=== PATIENT | male | born 1945 | race Caucasian/White ===

== ENCOUNTER → 2016-05-20 | Outpatient (CLI) | payer MEDICARE, BC | END | disposition home or self-care (01) | LOC: GMAL 12:12 | PROVIDERS: ATTEND Family Medicine | DX: D51.3 Other dietary vitamin B12 deficiency anemia (principal) ==

== ENCOUNTER → 2016-11-24 | Outpatient (CLI) | payer MEDICARE, BC | END | disposition home or self-care (01) | LOC: GMAL 11:22 | PROVIDERS: ATTEND Family Medicine | DX: Z12.5 Encounter for screening for malignant neoplasm of prostate (principal); E55.9 Vitamin D deficiency, unspecified | CPT/HCPCS: 82306; G0103 ==

== ENCOUNTER → 2016-12-04 | Outpatient (CLI) | payer MEDICARE, BC ==
--- NOTE | 2016-12-05 10:28 | US ---
EXAM DESCRIPTION: Extremity,Lower Keegan Arteries CLINICAL HISTORY: 71 years Male, Other specified peripheral vascular diseases COMPARISON: None. TECHNIQUE: 2-D grayscale and color arterial duplex Doppler evaluation of the bilateral lower extremities is performed. FINDINGS: There is normal triphasic waveform flow from proximal to distal in the right lower extremity with no elevated velocities. There is normal triphasic waveform flow from the left common femoral artery to the popliteal artery. Triphasic flow in the peroneal and posterior tibialis arteries is seen with monophasic flow in the dorsalis pedis. Mild scattered ossified plaque of the arterial vasculature are seen. IMPRESSION: Mild atherosclerotic disease of the bilateral lower extremity arterial vasculature. No ultrasound evidence of flow-limiting stenosis in the major proximal to mid vessels of the bilateral lower extremities and distal vessel of the right lower extremity. Monophasic flow in the dorsalis pedis suggests moderate vascular disease in the more proximal anterior tibialis artery. Electronically signed by: Rashaad Hill MD 12/05/2016 10:26 AM CDT
== END | disposition home or self-care (01) ==
LOC: US 14:22
PROVIDERS: ATTEND Family Medicine
DX: I73.89 Other specified peripheral vascular diseases (principal)

== ENCOUNTER → 2017-05-20 | Outpatient (CLI) | payer MEDICARE, OTHER ==
--- NOTE | 2017-05-21 11:31 | MRI ---
EXAM DESCRIPTION: Lumbar Spine w/o Contrast MRI. CLINICAL HISTORY: LOW BACK PAIN COMPARISON: MRI lumbar spine 12/25/2008. TECHNIQUE: Multiplanar, multiple standard sequences, non contrast MRI, lumbar spine. FINDINGS: L5-S1: Disc desiccation and minimal disc space loss. Right side Modic type II endplate reactive changes, and Modic type III on the left. Minimal anterior bulging. Trace retrolisthesis. Mild foraminal narrowing right and moderate narrowing on the left. Mild to moderate canal narrowing. Posterior elements unremarkable. Well-circumscribed bright T1 and T2 signal in the superior left lateral L5 vertebral body, partially obscured by Modic type II endplate reactive changes on the left at L4-5. Smaller lesion with similar signal in the S1 segment. L4-5: Disc desiccation and moderate disc space loss posterior more than anterior. Bilateral Modic type II endplate reactive changes more posterior and to the right of midline. Posterior midline disc protrusion 6 mm impressing on the thecal sac. Bilateral mild facet arthrosis and posterior flavum ligament hypertrophy impressing on the lateral sac. AP canal diameter 6 cm. Bilateral disc bulge encroaching on the subarticular recesses, which are almost stenotic. Bilateral borderline foraminal stenosis. Schmorl's nodes in the endplates. L3-4: Minimal disc space loss. Anterior bulging and endplate spurs. Type II endplate reactive changes anterior and posterior. Posterior midline bulge 4 mm. Posterior flavum ligament hypertrophy. AP canal diameter 9 mm. Disc bulge encroaching on the bilateral subarticular recesses. Bilateral moderate foraminal narrowing. L2-3: Anterior disc bulge and endplate ridging with anterior Modic type II endplate reactive changes. Minimal posterior broad-based disc bulge. Posterior bilateral flavum ligament hypertrophy. Moderate canal narrowing. Disc bulge laterally with mild left foraminal narrowing and moderate right foraminal narrowing. Central L3 vertebral body well-circumscribed bright T1 and T2 signal stable since the prior study. L1-2: Disc desiccation and disc space maintained. Anterior Modic type II endplate reactive changes and minimal disc bulge. Progressed since the prior study. Minimal posterior bulge. Minimal flavum ligament hypertrophy. Moderate canal narrowing. Bilateral foramina are patent. Posterior L1 bright T1 and T2 weighted signal stable. T12-L1 disc signal unremarkable and disc space preserved. Canal and foramina are patent. Posterior elements unremarkable. Conus terminates at this level. Bright T1 and T2 signal in the posterior T12 vertebral body stable. No significant scoliosis. Paravertebral soft tissues unremarkable.. Heterogeneous marrow signal in the included sacrum, vertebral bodies and the posterior elements, and overall decreased fatty marrow, stable since the prior study. Vertebral bodies are not compressed at any level. IMPRESSION: 1. Multifactorial moderate to severe central canal stenosis at L4-5. Also possible cirrhosis bilateral subarticular recesses. Correlate for bilateral L5 radiculopathy. Bilateral borderline foraminal stenosis. Correlate for bilateral L4 radiculopathy. This has progressed since the prior study. Stable hemangioma abutting the endplate at L5. 2. Bilateral moderate to severe spondylosis at L5-S1. Progressive with progressive narrowing of the canal and left foramen. Vertebral body hemangioma and marrow reconversion in the sacrum. 3. Posterior moderate spondylosis and trace retrolisthesis at L3-4 with disc desiccation. Mild central canal stenosis. Also narrowing bilateral subarticular recesses. Correlate for bilateral L4 radiculopathy. Progressed since the prior study. Stable hemangioma L3 vertebral body. 4. Hemangiomas in the L3, L1, and T12 vertebral bodies are stable since the prior study along with marrow reconversion.. Electronically signed by: Dl Stewart MD 05/21/2017 11:30 AM CDT
== END ==
LOC: MRI 13:34
PROVIDERS: ATTEND Family Medicine
DX: M48.061 Spinal stenosis, lumbar region without neurogenic claudication (principal); M47.897 Other spondylosis, lumbosacral region; D18.09 Hemangioma of other sites

== ENCOUNTER → 2017-07-30 | Outpatient (CLI) | payer MEDICARE, OTHER | LOC: LAB.O 14:23 | PROVIDERS: ATTEND Psychiatry & Neurology Neurology | DX: M45.0 Ankylosing spondylitis of multiple sites in spine (principal); K50.90 Crohn's disease, unspecified, without complications; M32.10 Systemic lupus erythematosus, organ or system involvement unspecified; E11.9 Type 2 diabetes mellitus without complications; R53.83 Other fatigue; E55.9 Vitamin D deficiency, unspecified; M71.50 Other bursitis, not elsewhere classified, unspecified site; I67.9 Cerebrovascular disease, unspecified; M15.0 Primary generalized (osteo)arthritis; R50.9 Fever, unspecified; M79.A9 Nontraumatic compartment syndrome of other sites; M10.9 Gout, unspecified; E03.9 Hypothyroidism, unspecified; G60.3 Idiopathic progressive neuropathy; M35.1 Other overlap syndromes; G35 Multiple sclerosis; M79.1 Myalgia; G70.00 Myasthenia gravis without (acute) exacerbation; G04.89 Other myelitis; M81.8 Other osteoporosis without current pathological fracture; M35.3 Polymyalgia rheumatica; M33.22 Polymyositis with myopathy; B02.29 Other postherpetic nervous system involvement; M54.16 Radiculopathy, lumbar region; I73.00 Raynaud's syndrome without gangrene; G25.89 Other specified extrapyramidal and movement disorders; M35.00 Sjogren syndrome, unspecified ==

== ENCOUNTER → 2017-11-18 | Outpatient (CLI) | payer MEDICARE, OTHER | LOC: GMAL 12:15 | PROVIDERS: ATTEND Family Medicine | DX: D51.3 Other dietary vitamin B12 deficiency anemia (principal); R53.83 Other fatigue ==

== ENCOUNTER → 2017-11-26 | Outpatient (CLI) | payer MEDICARE, OTHER ==
--- NOTE | 2017-11-27 09:29 | CT ---
EXAM DESCRIPTION: Abdomen/Pelvis w/wo Contrast: Computed Tomography. CLINICAL HISTORY: ABDOMINAL PAIN. Hernia, distention, and bloating. COMPARISON: CT scan abdomen and pelvis 09/26/2013. TECHNIQUE: Spiral-axial scans at 5 x 5 mm intervals through the abdomen and pelvis before and after Optiray 320 nonionic IV contrast. Water-soluble oral contrast was given prior to without IV contrast sequence. Coronal and sagittal 2 mm reconstructions. 5 mm Delayed helical-axial scans, liver through the pubic symphysis. No adverse reactions. Total Exam DLP 4647.03 mGy - cm. This exam was performed according to our departmental CT dose-optimization program which includes automated exposure control, adjustment of the mA and/or kV according to patient size and/or use of iterative reconstruction technique; to reduce radiation dose to as low as reasonably achievable (ALARA). FINDINGS: Lung bases and pleura: Small nodule in the base of the right middle lobe approximately 3 mm mean diameter. Minimal pleural thickening. Liver, Stomach, Spleen, Adrenal Glands: Minimally plump adrenal glands bilaterally with fatty density below -30 HU. Small sliding hiatal hernia. Fatty lipoma in the left bro of the diaphragm. Minimal heterogeneous fatty density in the liver. Other solid organs are negative. Pancreas, Gallbladder, Ducts: Gallbladder visualized. Duct and pancreas negative. Kidneys and Ureters: Significant hydronephrosis left kidney but minimal perinephric edema. Marked hydroureter 1.7 cm with abrupt tapering to normal caliber at the L4-5 disc space level. 10 x 4.5 mm radiodense stone in the posterior aspect of the dilated ureter just above this transition. Long axis of the stone is parallel to the posterior ureteral wall Very distal left ureter and UVJ and base of the bladder partially obscured by beam hardening artifact from left total hip arthroplasty. On the delayed image, there is contrast pooling in the posterior aspect of the minor calyces but no significant amount of contrast enters the renal pelvis or left ureter Thinning of the left renal cortex with at least 4 cortical cysts measuring 2 to 3 mm in diameter. No radiodense stones. Cortical cysts also seen on the right kidney smaller with no hydronephrosis and no hydroureter. No radiodense stones in the right kidney. Mesentery: No significant fatty stranding or fascial thickening especially around the dilated left kidney and ureter. No free air or free fluid. Aorta: Minimal atherosclerotic calcification with no dilation. Small Bowel: Normal caliber and contains oral contrast. Terminal Ileum/Cecum: Unremarkable. Appendix is visualized. Normal fatty density surrounding these organs. Colon: Diffuse fecal material from the cecum to the rectum. Minimal redundancy of the sigmoid colon with no complications. Pelvic Organs: Prostate gland abutting the urinary bladder with central calcification. The bladder is contracted. Seminal vesicles are not well seen. Artifact from left total hip arthroplasty. Spine and Bony Pelvis: Spondylosis L4-5 and L5-S1 also in some of the included thoracic disc spaces. Xiphoid process inferiorly angled anteriorly 9 degrees under the skin. Minimal arthrosis in the right hip joint. Abdominal Wall/Back Soft Tissues: Small fatty left inguinal hernia and diastases of the umbilicus not containing bowel. Bilateral fatty adrenal glands are unremarkable Ia not containing bowel. Minimal diastases of the umbilicus but not containing bowel. IMPRESSION: 1. Moderate to severe hydronephrosis which appears to be chronic with minimal perirenal fatty stranding similar to contralateral normal right kidney pararenal fat. Significant dilation of the left renal pelvis with left hydroureter which abruptly transitions to normal caliber at the L4-5 disc level. Approximately 10 mm stone just above this transition. No mass affect or fatty stranding at this transition point. No radiodense stones in either kidney. Bilateral renal cortical cysts larger on the left. 2. Minimal fatty infiltration of the liver. Spondylosis L4-5 and L5-S1. Small fatty left inguinal hernia not containing bowel. Prostate gland not enlarged with central calcification. Electronically signed by: Dl Stewart MD 11/27/2017 9:28 AM CDT
== END ==
LOC: RAD 12:01
PROVIDERS: ATTEND Family Medicine
DX: R10.84 Generalized abdominal pain (principal); N13.2 Hydronephrosis with renal and ureteral calculous obstruction; K76.0 Fatty (change of) liver, not elsewhere classified; K40.90 Unilateral inguinal hernia, without obstruction or gangrene, not specified as recurrent; N28.1 Cyst of kidney, acquired; R35.0 Frequency of micturition; Z12.5 Encounter for screening for malignant neoplasm of prostate
CPT/HCPCS: 74178; 87086; G0103

== ENCOUNTER → 2018-02-25 | Outpatient (CLI) | payer MEDICARE, OTHER | LOC: GMAL 10:33 | PROVIDERS: ATTEND Family Medicine | DX: D51.3 Other dietary vitamin B12 deficiency anemia (principal); E03.9 Hypothyroidism, unspecified ==

== ENCOUNTER → 2018-10-01 | Outpatient (CLI) | payer MEDICARE, OTHER ==
--- NOTE | 2018-10-01 15:05 | RAD ---
EXAM DESCRIPTION: Chest,2 Views CLINICAL HISTORY: COUGH COMPARISON: Previous study July 14, 2018 TECHNIQUE: PA/lateral FINDINGS: There is no acute appearing cardiac or pulmonary abnormality. Heart size is prominent with increased pulmonary vascularity. No pleural effusion or pneumothorax. Lungs are clear with no consolidating infiltrate. Lateral view shows intact sternum and T-spine. IMPRESSION: Large heart with increased vascularity. Electronically signed by: Isidro Johnson MD 10/01/2018 3:04 PM CDT
== END ==
LOC: LAB.O 14:33
PROVIDERS: ATTEND Nurse Practitioner Family
DX: R05 Cough (principal)

== ENCOUNTER → 2018-11-22 | Outpatient (CLI) | payer MEDICARE, OTHER ==
--- NOTE | 2018-11-22 12:36 | RAD ---
EXAM DESCRIPTION: Foot,Left 3 Views CLINICAL HISTORY: 73 years Male, PAIN IN LEFT FOOT COMPARISON: 11/19/2018 Findings: Redemonstrated first, second and third proximal phalanx fractures with similar alignment. No new fracture identified. Lisfranc alignment is maintained. Improved soft tissue swelling. IMPRESSION: Similar first through third proximal phalanx fractures. Electronically signed by: Hemanth Carlisle MD 11/22/2018 12:34 PM CDT
== END ==
LOC: RAD 09:45
PROVIDERS: ATTEND Orthopaedic Surgery
DX: S92.412A Displaced fracture of proximal phalanx of left great toe, initial encounter for closed fracture (principal); S92.512A Displaced fracture of proximal phalanx of left lesser toe(s), initial encounter for closed fracture

== ENCOUNTER → 2018-12-06 | Outpatient (CLI) | payer MEDICARE, OTHER ==
--- NOTE | 2018-12-06 11:06 | RAD ---
EXAM DESCRIPTION: Foot,Left 3 Views CLINICAL HISTORY: CLOSED FX OF METATARSAL BONE COMPARISON: Radiographs the left foot dated 11/22/2018. TECHNIQUE: AP, LATERAL, AND OBLIQUE FINDINGS: The visualized bones appear well mineralized. Comminuted fracture of the proximal phalanges of the first, second and third toes are again noted with no interval healing. There is associated soft tissue swelling. IMPRESSION: Comminuted fracture of the proximal phalanges of the first, second and third toes are again noted with no interval healing. Electronically signed by: Miriam Zhu MD 12/06/2018 11:04 AM CDT
== END ==
LOC: RAD 09:32
PROVIDERS: ATTEND Orthopaedic Surgery
DX: S92.415D Nondisplaced fracture of proximal phalanx of left great toe, subsequent encounter for fracture with routine healing (principal); S92.515D Nondisplaced fracture of proximal phalanx of left lesser toe(s), subsequent encounter for fracture with routine healing

== ENCOUNTER → 2018-12-20 | Outpatient (CLI) | payer MEDICARE, OTHER ==
--- NOTE | 2018-12-20 09:43 | RAD ---
EXAM DESCRIPTION: Foot,Left 3 Views CLINICAL HISTORY: 73 years, Male, FRACTURE OF PROXIMAL PHALANX OF LEFT GREAT TOE COMPARISON: [place] 28/09/2018 TECHNIQUE: Three views left foot FINDINGS: Three views left foot demonstrate minimally displaced slightly comminuted fractures involving the first second and third proximal phalanges of the left toes. Middle and distal phalanges appear intact. No metatarsal injury is seen. The fourth and fifth toes are intact. Minimal callus formation is now evident best seen on the oblique view. New injuries are not apparent. IMPRESSION: Minimal callus formation and healing of fractures involving the first, second, and third proximal phalanges in near anatomic alignment with at least mild comminution of the first and second proximal phalangeal fracture evident Electronically signed by: Drake Arnold MD 12/20/2018 9:42 AM [facility] [[email or web address]]
== END ==
LOC: RAD 09:13
PROVIDERS: ATTEND Orthopaedic Surgery
DX: S92.415D Nondisplaced fracture of proximal phalanx of left great toe, subsequent encounter for fracture with routine healing (principal); S92.515D Nondisplaced fracture of proximal phalanx of left lesser toe(s), subsequent encounter for fracture with routine healing

== ENCOUNTER → 2019-01-10 | Outpatient (CLI) | payer MEDICARE, OTHER ==
--- NOTE | 2019-01-10 09:55 | RAD ---
EXAM DESCRIPTION: Foot,Left 3 Views CLINICAL HISTORY: CLOSED FRACTURE OF PHALANX OF LEFT FOOT COMPARISON: December 20, 2018. TECHNIQUE: AP, LATERAL, AND OBLIQUE radiographs of the left foot. FINDINGS: Mild diffuse osteopenia of the visualized bones noted. Again noted are minimally displaced comminuted fractures through the shafts of first, second and third proximal phalanges with slight interval callus formation. The callus formation is more pronounced at the fracture sites of first and second proximal phalangeal fractures, in comparison to recent prior radiographs. No other new acute fracture identified. Mild soft tissue swelling along the dorsum of the foot appears stable. 6 IMPRESSION: 1. Minimally displaced comminuted fractures through the shafts of first, second and third proximal phalanges with interval callus formation at the fracture sites in comparison to recent radiographs dated December 20, 2018 likely represents interval healing. 2. No new acute fracture. Electronically signed by: Charles Tiwari MD 01/10/2019 9:54 AM [facility]
== END ==
LOC: RAD 09:06
PROVIDERS: ATTEND Orthopaedic Surgery
DX: S92.415D Nondisplaced fracture of proximal phalanx of left great toe, subsequent encounter for fracture with routine healing (principal); S92.515D Nondisplaced fracture of proximal phalanx of left lesser toe(s), subsequent encounter for fracture with routine healing

== ENCOUNTER → 2019-02-07 | Outpatient (CLI) | payer MEDICARE, OTHER ==
--- NOTE | 2019-02-07 11:41 | RAD ---
EXAM DESCRIPTION: Foot,Left 3 Views CLINICAL HISTORY: 73 years, Male, CLOSED FX OF PHALANX OF FOOT COMPARISON: January 10, 2019, November 22, 2018 TECHNIQUE: AP, lateral, and oblique views of the left foot FINDINGS: Three views of the left foot demonstrate essentially nondisplaced incompletely healed fractures of the first, second, and third proximal phalanges. Fracture lines are less distinct than seen on imaging 2 1/2 months earlier with end osteal sclerosis evident. Distal phalanges appear intact and no injury of the fourth or fifth toe noted. Compared to most recent study with very little change is evident. The midfoot and hindfoot appear unremarkable. IMPRESSION: Sclerosis and indistinct fracture lines of incompletely healed fractures of the first, second, and third proximal phalanges in essentially anatomic alignment. Electronically signed by: Drake Arnold MD 02/07/2019 11:40 AM [facility]
== END ==
LOC: RAD 09:39
PROVIDERS: ATTEND Orthopaedic Surgery
DX: S92.415D Nondisplaced fracture of proximal phalanx of left great toe, subsequent encounter for fracture with routine healing (principal); S92.515D Nondisplaced fracture of proximal phalanx of left lesser toe(s), subsequent encounter for fracture with routine healing

== ENCOUNTER → 2019-10-18 | Outpatient (CLI) | payer MEDICARE, OTHER | LOC: GMAL 10:51 | PROVIDERS: ATTEND Family Medicine | DX: D51.3 Other dietary vitamin B12 deficiency anemia (principal); R53.83 Other fatigue; E55.9 Vitamin D deficiency, unspecified; I10 Essential (primary) hypertension; Z79.899 Other long term (current) drug therapy ==

== ENCOUNTER → 2019-12-28 | Outpatient (CLI) | payer MEDICARE, OTHER ==
--- NOTE | 2019-12-28 20:16 | US ---
EXAM DESCRIPTION: Soft Tissue,Extremity: ULTRASOUND. CLINICAL HISTORY: 74 years Male LOWER ABD PN, UNSP COMPARISON: None Available. TECHNIQUE: Transcutaneous scanning: Matson-scale and Doppler modes. FINDINGS: Scanning of the site of pain, left inguinal canal. Lymph nodes abutting the inguinal canal with a large hypoechoic cortex and enlarged eccentric echogenic hilum. One node measures 2.6 x 1.7 x 1.4 cm. A second node within cortex and thickened hilum measures 2.2 x 1.9 x 1.1 cm. The largest node has a thickened echogenic hilum and thin hypoechoic cortex and measures 5 x 3.6 x 1.1 cm. No hernia defect is seen. No bowel within the inguinal canal or fluid. Large calcifications. IMPRESSION: Enlarged lymph nodes corresponding to the region of left inguinal pain with the largest node measuring 5 cm. No hernia. Electronically signed by: Dl Stewart MD 12/28/2019 8:14 PM [facility]
== END ==
LOC: US 09:30
PROVIDERS: ATTEND Family Medicine
DX: R59.0 Localized enlarged lymph nodes (principal)